=== PATIENT | female | born 1980 | race Caucasian/White ===

== ENCOUNTER → 2017-12-24 12:26 | Outpatient (CLI) | payer OTHER, SELFPAY | PROVIDERS: Family Provider Family Medicine; PCP Family Medicine | DX: Z23 Encounter for immunization (principal) | CPT/HCPCS: 90471; 90686 ==

== ENCOUNTER → 2019-01-06 15:33 | Outpatient (CLI) | payer OTHER, SELFPAY | PROVIDERS: Family Provider Family Medicine; PCP Family Medicine | DX: Z23 Encounter for immunization (principal) | CPT/HCPCS: 90471; 90686 ==

== ENCOUNTER → 2019-11-18 13:35 | Outpatient (CLI) | payer OTHER, SELFPAY ==
[2019-11-19 12:09] LABS: COVID19 Sendout Not Detected (Not Detect)
== END ==
PROVIDERS: Family Provider Family Medicine; PCP Family Medicine; Visit Provider Physician Assistant
DX: Z11.59 Encounter for screening for other viral diseases (principal)
CPT/HCPCS: 87635

== ENCOUNTER 2019-11-21 13:59 | Day surgery (SDC) | payer OTHER, SELFPAY ==
--- NOTE | 2019-11-21 | PATH_ITS ---
[facility] Accession Number: [id number] . 01 Material submitted: . PART A: colon - ASCENDING COLON BIOPSY RANDOM PART B: colon - TRANSVERSE COLON BIOPSY RANDOM PART C: colon - DESCENDING COLON BIOPSY RANDOM PART D: colon - SIGMOID COLON BIOPSY RANDOM PART E: colon - FRIABLE MUCOSA SIGMOID COLON BIOPSY . 02 Diagnosis: A-D: Ascending Colon, Transverse Colon, Descending Colon, Sigmoid Colon, Random Biopsies: Colonic mucosa with no diagnostic abnormality. Negative for active, chronic, and microscopic colitis. Negative for dysplasia and malignancy. . E. Sigmoid Colon, Friable Mucosa, Biopsy: Mildly active colitis with mild distortion of the crypt architecture. Please see comment. Negative for granulomas, dysplasia and malignancy. [facility] 11/23/2019 1246 Local . 02 Comment: E. The sigmoid colon biopsy shows mild neutrophilic cryptitis involving all of the biopsy fragments. There is associated distortion of the crypt architecture including branched crypts, mildly shortened crypt length and increased lymphocytes and plasma cells in the lamina propria. No obvious viral cytopathic effects or parasitic organisms are identified. The differential diagnosis includes infection, medication-related mucosal injury, diverticular disease associated colitis, and idiopathic inflammatory bowel disease. . 02 Electronically signed: . Seble Sears MD, Pathologist NPI- [id number] . 01 Gross description: . Part A: ASCENDING COLON BIOPSY RANDOM: Received in formalin are 2 fragment(s) of gonzalez, soft tissue measuring 0.5 x 0.3 x 0.1 cm to 0.2 x 0.1 x 0.1 cm submitted entirely in 1 cassette(s) Part B: TRANSVERSE COLON BIOPSY RANDOM: Received in formalin is 1 fragment(s) of gonzalez, soft tissue measuring 0.3 x 0.2 x 0.2 cm submitted entirely in 1 cassette(s) Part C: DESCENDING COLON BIOPSY RANDOM: Received in formalin are 2 fragment(s) of gonzalez, soft tissue measuring 0.4 x 0.3 x 0.1 cm to 0.2 x 0.2 x 0.2 cm submitted entirely in 1 cassette(s) Part D: SIGMOID COLON BIOPSY RANDOM: Received in formalin are 2 fragment(s) of gonzalez, soft tissue measuring 0.3 x 0.2 x 0.2 cm to 0.3 x 0.2 x 0.2 cm submitted entirely in 1 cassette(s) Part E: FRIABLE MUCOSA SIGMOID COLON BIOPSY: Received in formalin are 2 fragment(s) of gonzalez, soft tissue measuring 0.5 x 0.2 x 0.1 cm to 0.4 x 0.2 x 0.1 cm submitted entirely in 1 cassette(s) /QBJ 11/22/2019 0816 Local . 02 Pathologist provided ICD-10: K52.9 . 02 CPT . 075466, 720824, 225530, 768097, 290478 Performed at: 01 [facility] [address] [id number] MD Jose Maria Hughes MD Phone: [phone] Performed at: 02 [facility] [address] [place], [place] [id number] MD Seble Sears MD Phone: [phone]
--- NOTE | 2019-11-21 12:01 | P.HP_ITS ---
History of Present Illness History of Present Illness Date Patient Seen: 11/21/19 Chief complaint: COLONOSCOPY Narrative: 39 Years Old Female seen today for follow-up of: 1. Bowel habit changes. Continues to have a mucus coating her stools x 7 months now. She did try a gluten-free diet and had an almost complete resolution of her symptoms. Reports a family history of gluten sensitivity and IBS. One family member has celiac disease. Her tissue transglutaminase was negative 09/23/2019. Since her last visit, she stopped her elimination diet and has had a recurrence of symptoms. Reports that her weight has been stable with no unintentional weight loss. Stool studies on 09/21/2019 including stool culture, fecal calprotectin, Giardia, O&P, and FIT significant for positve FIT and fecal calprotectin. There's been no family history of colon cancer or colon polyps. Overall health issues have been stable, including no major cardiac events for at least 6 weeks. Current Medications (verified): 1) Sertraline Hcl 100 Mg Oral Tablet (Sertraline Hcl) .... Take 1 and 1/2 tablet by mouth once a day for anxiety or depression Allergies (verified): 1) Percocet (Critical) 2) Vicodin (Critical) Past Medical History: Reviewed history from 09/23/2019 and no changes required: Miscarriage x 2 BOWEL HABIT CHANGE HEADACHE, TENSION Macromastia Neck pain TRAPEZIUS MUSCLE STRAIN SKIN TAG HYPERLIPIDEMIA, MIXED SHINGLES DEPRESSION/ANXIETY NEVUS, NON-NEOPLASTIC NEOPLASM, SKIN, OF UNCERTAIN BEHAVIOR ABDOMINAL PAIN CANDIDIASIS, VAGINA / VULVA Past Surgical History: none Family History: Reviewed history from 09/23/2019 and no changes required: Father: Depression. Not on meds. lives in [place] Mother: Hyperlipidemia, depression and anxiety Siblings: none MGM: in s mantle cell lymphoma Social History: Reviewed history from 02/12/2016 and no changes required: Marital Status: Single Children: Michael (2012) Gypsy (2015) Occupation: [employer] Education: 16 years Patient History Medical History (Updated 11/21/19 @ 13:41 by Adriane Bentley RN) Abdominal pain (Acute) Anxiety and depression (Acute) Bowel habit changes (Acute) Candidiasis of vulva and vagina (Acute) Hyperlipidemia, mixed (Acute) Macromastia (Acute) Neck pain (Acute) Neoplasm of uncertain behavior of skin (Acute) Nevus, non-neoplastic (Acute) Positive FIT (fecal immunochemical test) (Acute) Shingles (Acute) Skin tag (Acute) Tension headache (Acute) Trapezius muscle strain (Acute) Meds Home Medications and Allergies Home Medications Medication Instructions Recorded Confirmed Type sertraline 150 mg PO DAILY 11/21/19 11/21/19 History Allergies Allergy/AdvReac Type Severity Reaction Status Date / Time hydrocodone Allergy Severe NAUSEA Verified 11/21/19 14:20 throat swells oxycodone Allergy Severe throat Verified 11/21/19 14:20 swells Review of Systems Review of Systems ROS: Yes All systems reviewed with the patient and are negative except as otherwise documented Exam Narrative Exam Narrative: GENERAL: Alert and oriented, appearing stated age and in no acute distress. HEENT: Head normocephalic/atraumatic. Pupils equal, round, and reactive to light and accomodation. Extraocular muscles intact. Nasal mucosa moist, septum midline. Oral mucosa moist, no lesions. Neck soft and supple, no lymphadenopathy. LUNGS: Clear to ausculation bilaterally, no wheezes, rhonchi or rales. CV: Normal S1 and S2 with regular rate and rhythm, no audible murmurs, rubs or gallops. ABDOMEN: Soft, non-tender, non-distended, no organomegaly. Positive bowel sounds. EXTREMITIES: No clubbing, cyanosis, or edema. NEURO: Cranial nerves II through XII grossly intact, no focal deficits. PSYCH: Alert and oriented x 3. SKIN: No concerning lesions. Assessment & Plan Assessment & Plan narrative: Problem # 1: BOWEL HABIT CHANGE 1. Colonoscopy The nature and character of the procedure as well as anticipated results were discussed. The possibility of not completing the procedure was also discussed. Possible complications including aspiration pneumonia, bleeding, perforation and reaction to medications either for sedation or preparation and missed lesions were discussed. Questions were answered and proceeding to the colonoscopy was elected. Informed consent signed. I sincerely appreciate the referral allowing me to participate in this patient's care. Please contact me with any questions or concerns. If colonoscopy is negative, consider referral to applied anthropologist for continued work- up. Problem # 2: Positive FIT (fecal immunochemical test) Please see #1. Problem # 3: Screening for colon cancer Please see #1.
--- NOTE | 2019-11-21 12:05 | PM.OP.ENDO ---
Operative Date/Time/Diagnoses Date of procedure: 11/21/19 Pre-op diagnosis: 1. Bowel habit change 2. Positive FIT 3. Screening for colon cancer Post-op diagnosis: other (As below) Procedure & Clinicians Study performed: Colonoscopy Same procedure as scheduled: Yes Surgeon: Lauren Dotson Procedure Notes SCOAP/Timeout: 3:26 p.m. Procedure in detail: ENDOSCOPIST: Lauren Dotson MD Sedation RN: Ascencion Rangel RN Sedation start time: 3:27 p.m. Sedation end time: 3:58 p.m. PROCEDURE: Colonoscopy with biopsy INDICATIONS: 1. Bowel habit change 2. Positive FIT 3. Screening for colon cancer MEDICATION: Levsin 0.125 mg sublingual, incremental doses of Versed and fentanyl until appropriate level sedation achieved. ASA CLASS: 2 CECAL WITHDRAWAL TIME: 13 minutes COMPLICATIONS: None. EXTENT OF PROCEDURE: Cecum. QUALITY OF PREP: Good with portions of liquid stool. PROCEDURE: Prior to insertion of the colonoscope, a digital rectal examination was accomplished with circumferential palpation of the distal rectal mucosa without significant findings being noted. The high-definition colonoscope was passed into the rectum in the usual fashion and advanced over to the cecum without difficulty. The ileocecal valve, appendiceal stoma, and medial wall all could be inspected and no abnormalities were seen. ASCENDING COLON: As the colonoscope was withdrawn, care was taken to expose and inspect the haustral folds and no abnormalities were seen. Random biopsies taken x2. HEPATIC FLEXURE: Normal, no polyps, diverticula or other abnormalities. Random biopsies taken x2. TRANSVERSE COLON: Normal, no polyps, diverticula or other abnormalities. Random biopsies taken x2. DESCENDING COLON: Normal, no polyps, diverticula or other abnormalities. Random biopsies taken x2. SIGMOID COLON: At the most distal point of the sigmoid, there were patchy areas of friable mucosa, targeted biopsy taken x2. Otherwise, normal, no polyps, diverticula or other abnormalities. RECTUM: Normal. J maneuver was produced. There was no significant perianal disease. The J maneuver was broken. The remainder of the rectum was inspected and there was no external hemorrhoid disease. The scope was withdrawn. IMPRESSION: 1. Friable mucosa, distal sigmoid, otherwise normal colonoscopy PLAN: 1. Follow-up in clinic status post pathology results. The possibility of a missed lesion including a malignancy has been discussed with the patient previously. Potential alarm symptoms have been discussed and should be reported immediately. Complications: none Post-procedure Recommendations: Will call with biopsy results Follow up: weeks (2) Disposition: PACU
[2019-11-21] MEDS: HYOSCYAMINE 0.125 MG TABLET PO (14:24)
[2019-11-21 14:27] VITALS: BP 106/73; PULSE 78; RESP 16; TEMP 36.2; O2SAT 98; BMI 32.4
[2019-11-21] MEDS: LACTATED RINGERS 1,000 ML 200 ML IV (14:30)
[2019-11-21] MEDS: fentaNYL 250 MCG/5 ML INJ IV (15:35)
[2019-11-21] MEDS: MIDAZOLAM 5 MG/5 ML VIAL IV (15:39)
[2019-11-21 16:02] VITALS: BP 103/63; PULSE 58; RESP 16; TEMP 36.9; O2SAT 97
[2019-11-21 16:07] VITALS: BP 90/59; PULSE 58; RESP 17; O2SAT 97
[2019-11-21 16:12] VITALS: BP 96/64; PULSE 66; RESP 17; O2SAT 97
[2019-11-21 16:15] VITALS: BP 98/62; PULSE 62; RESP 16; TEMP 36.1; O2SAT 96
[2019-11-21 16:40] VITALS: BP 95/60; PULSE 63; RESP 17; TEMP 36.1; O2SAT 97
== END 2019-11-21 16:53 | disposition home or self-care (01) ==
PROVIDERS: Family Provider Family Medicine; PCP Family Medicine; Referring Provider Family Medicine; Visit Provider Student in an Organized Health Care Education/Training Program
PROC: 0DJD8ZZ Inspection of Lower Intestinal Tract, Via Natural or Artificial Opening Endoscopic (ICD-10-PCS; CPT 45378; principal; 2019-11-21 15:15)
DX: K52.9 Noninfective gastroenteritis and colitis, unspecified (principal)
CPT/HCPCS: 45380; J2250; J3010

== ENCOUNTER → 2021-03-27 12:00 | Outpatient (CLI) | payer OTHER, SELFPAY ==
[2021-03-27 12:50] LABS: COVID19 -Nasal RAPID Negative (Negative)
== END ==
PROVIDERS: Family Provider Family Medicine; PCP Family Medicine; Visit Provider Nurse Practitioner Family
DX: R51.9 Headache, unspecified (principal); J02.9 Acute pharyngitis, unspecified
CPT/HCPCS: 87635

== ENCOUNTER → 2021-06-03 15:27 | Outpatient (CLI) | payer OTHER, SELFPAY ==
--- NOTE | 2021-06-03 | DI.MG.S_ITS ---
BILATERAL DIGITAL SCREENING MAMMOGRAM 3D/2D WITH CAD: 06/03/2021 CLINICAL: Routine screening. Baseline exam. No prior exams were available for comparison. The tissue of both breasts is heterogeneously dense. This may lower the sensitivity of mammography. Current study was also evaluated with a Computer Aided Detection (CAD) system. No significant masses, calcifications, or other findings are seen in either breast. IMPRESSION: NEGATIVE There is no mammographic evidence of malignancy. A 1 year screening mammogram is recommended. This exam was interpreted at Station ID: [id number]. NOTE: For mammograms, a report in lay terms will be sent to the patient. Approximately 15% of breast malignancies will not be visualized mammographically. In the management of a palpable breast mass, a negative mammogram must not discourage biopsy of a clinically suspicious lesion. Electronically Signed By: Clarice velez/manav:06/03/2021 15:48:59 letter sent: Normal Exam ACR BI-RADS Category 1: Negative [id number]
== END ==
PROVIDERS: Family Provider Family Medicine; PCP Family Medicine; Referring Provider Family Medicine; Visit Provider Family Medicine
DX: Z12.31 Encounter for screening mammogram for malignant neoplasm of breast (principal)
CPT/HCPCS: 77063; 77067

== ENCOUNTER → 2022-12-02 08:15 | Outpatient (CLI) | payer OTHER, SELFPAY ==
[2022-12-02 10:09] LABS: Magnesium 1.9 mg/dL (1.6-2.3)
== END ==
PROVIDERS: Family Provider Family Medicine; PCP Family Medicine; Referring Provider Family Medicine; Visit Provider Family Medicine
DX: E78.2 Mixed hyperlipidemia (principal)
CPT/HCPCS: 36415; 83735

== ENCOUNTER → 2022-12-30 09:58 | Outpatient (CLI) | payer OTHER, SELFPAY ==
--- NOTE | 2022-12-30 | DI.RAD.S_ITS ---
PROCEDURE: XR FOOT RT MIN 3V INDICATIONS: FOOT INJURY TECHNIQUE: 3 views of the foot were acquired. COMPARISON: None. FINDINGS: Bones: Mildly displaced fracture at the base of the 5th metatarsal. Soft tissues: No tibiotalar joint effusion. Achilles tendon appears normal. IMPRESSION: Mildly displaced fracture of the base of the 5th metatarsal. Dictated by: Jose Enrique Ruiz M.D. on 12/30/2022 at 11:03 Approved by: Jose Enrique Ruiz M.D. on 12/30/2022 at 11:04
== END ==
PROVIDERS: Family Provider Family Medicine; PCP Family Medicine; Referring Provider Internal Medicine; Visit Provider Internal Medicine
DX: S92.351A Displaced fracture of fifth metatarsal bone, right foot, initial encounter for closed fracture (principal); X58.XXXA Exposure to other specified factors, initial encounter
CPT/HCPCS: 73630

== ENCOUNTER → 2024-01-29 17:12 | Outpatient (CLI) | payer OTHER, SELFPAY ==
--- NOTE | 2024-01-29 17:14 | DI.MG.S_ITS ---
BILATERAL DIGITAL SCREENING MAMMOGRAM 3D/2D WITH CAD: 01/29/2024 CLINICAL: Routine screening. Family history of breast cancer. Comparison is made to exam dated: 06/03/2021 mammogram - [facility]. The breasts are heterogeneously dense, which may obscure small masses (category c / 51-75% glandular tissue). Current study was also evaluated with a Computer Aided Detection (CAD) system. No significant masses, calcifications, or other findings are seen in either breast. There has been no significant interval change. IMPRESSION: NEGATIVE There is no mammographic evidence of malignancy. A 1 year screening mammogram is recommended. Based on the Tyrer Cuzick model (a risk assessment model) the patient's lifetime risk is 14.3% and her 10 year risk is 2.6%. According to the ACR, ACS, and NCCN guidelines, an annual breast MRI exam along with mammogram is recommended if the patient's lifetime risk is 20% or greater. This exam was interpreted at Station ID: [id number]. NOTE: For mammograms, a report in lay terms will be sent to the patient. Approximately 15% of breast malignancies will not be visualized mammographically. In the management of a palpable breast mass, a negative mammogram must not discourage biopsy of a clinically suspicious lesion. Electronically Signed By: Warren choi/manav:02/01/2024 11:58:12 letter sent: Normal Exam ACR BI-RADS Category 1: Negative
--- NOTE | 2024-01-29 17:14 | DI.MRI.S_ITS ---
PROCEDURE: MR HEAD/BRAIN WO/W CON INDICATIONS: CHRONIC MIGRAINE WO AURA TECHNIQUE: Noncontrast axial T1 spin echo, axial T2 fast spin echo, sagittal and axial FLAIR, coronal T2 fast spin echo, axial gradient echo, axial diffusion and ADC through the brain. After the administration of contrast, axial and coronal and sagittal 3D VIBE or T1 spin echo with fat saturation through the brain. COMPARISON: None. FINDINGS: Image quality: Excellent. CSF Spaces: Basal cisterns are patent. No extra-axial fluid collections. Ventricles are normal in size and shape. Brain: No midline shift. No intracranial bleeds or masses. No abnormal intracranial enhancement. The brainstem appears normal. Diffusion-weighted images demonstrate no acute infarct. No chronic ischemic insults. Normal intravascular flow voids are present. Skull and face: Calvarial marrow is normal in signal. Orbits appear normal. Sinuses: Sinuses and mastoids appear clear. IMPRESSION: Unremarkable brain MRI, without a cause of headaches identified. No masses or abnormal enhancement can be seen. Dictated by: Kevin North M.D. on 01/29/2024 at 17:41 Approved by: Kevin North M.D. on 01/29/2024 at 17:42
== END ==
PROVIDERS: Family Provider Family Medicine; PCP Family Medicine; Referring Provider Family Medicine; Visit Provider Family Medicine
DX: Z12.31 Encounter for screening mammogram for malignant neoplasm of breast (principal); Z80.3 Family history of malignant neoplasm of breast; R92.333 Mammographic heterogeneous density, bilateral breasts; G43.709 Chronic migraine without aura, not intractable, without status migrainosus
CPT/HCPCS: 70553; 77063; 77067; A9579

== ENCOUNTER → 2024-01-30 15:09 | Outpatient (CLI) | payer OTHER, SELFPAY | PROVIDERS: Family Provider Family Medicine; PCP Family Medicine; Referring Provider Nurse Practitioner Family; Visit Provider Nurse Practitioner Family | DX: H57.89 Other specified disorders of eye and adnexa (principal); B34.9 Viral infection, unspecified | CPT/HCPCS: 87252 ==